=== PATIENT | female | born 1980 | race Two or more races ===

== ENCOUNTER 2022-12-26 21:23 | Emergency (ER) | payer OTHER ==
[~2022-12-26] VITALS: Ht 160 cm; Wt 121.7 kg
[2022-12-27 01:13] VITALS: BP 130/86
[2022-12-27] MEDS ORDERED: KETOROLAC TROMETH 30 MG/ML 1ML VIAL IM ONE (01:15)
== END 2022-12-27 01:48 | disposition home or self-care (01) ==
LOC: EDSEX 21:26 → ER 21:26
DX: S02.2XXA Fracture of nasal bones, initial encounter for closed fracture (principal); S00.31XA Abrasion of nose, initial encounter; E78.5 Hyperlipidemia, unspecified; Z88.6 Allergy status to analgesic agent; Y00.XXXA Assault by blunt object, initial encounter; Y93.89 Activity, other specified; Y92.89 Other specified places as the place of occurrence of the external cause; Y99.8 Other external cause status
CPT/HCPCS: 70450; 70486; 72131; 96372; 99285; J1885